=== PATIENT | male | born 1980 | race Caucasian/White ===

== ENCOUNTER 2022-01-13 02:46 | Emergency (ER) | payer BC ==
[~2022-01-13] VITALS: Ht 167.6 cm; Wt 108.9 kg
--- NOTE | 2022-01-13 03:41 | NUR ---
Dr. Vaughan at bedside for MSE.
[2022-01-13] MEDS ORDERED: LIDOCAINE 2%-EPI 1:100,000 20 ML VIAL ONE (03:52)
[2022-01-13] MEDS ORDERED: SILVER NITRATE APPLICATOR STICK EACH TP ONE ×2 (03:52→04:00)
[2022-01-13] MEDS ORDERED: LIDOCAINE 2%-EPI 1:100,000 20 ML VIAL IJ ONE (04:00)
[2022-01-13 05:16] VITALS: BP 148/90
--- NOTE | 2022-01-13 05:16 | NUR ---
Patient discharged to home in stable condition. Written and verbal after care instructions given. Patient verbalizes understanding of instructions. Stressed follow up or return to ER for worsening s/s. Patient out of ER with steady gait, no acute signs of distress, VSS, all belongings taken.
== END 2022-01-13 05:17 | disposition home or self-care (01) ==
LOC: ER 02:50
DX: J95.831 Postprocedural hemorrhage of a respiratory system organ or structure following other procedure (principal); E66.9 Obesity, unspecified; Z68.38 Body mass index [BMI] 38.0-38.9, adult; G47.30 Sleep apnea, unspecified; Z88.0 Allergy status to penicillin; R03.0 Elevated blood-pressure reading, without diagnosis of hypertension
CPT/HCPCS: A4663